=== PATIENT | female | born 1945 | race Caucasian/White ===

== ENCOUNTER 2018-10-11 10:47 | Emergency (ER) | payer MEDICARE, OTHER ==
[~2018-10-11] VITALS: Ht 157.5 cm; Wt 66.7 kg
[~2018-10-11 10:47] MED LIST: ALLOPURINOL100 MG PO; ASPIRIN81 MG PO; CALCITRIOL0.25 MCG PO; FUROSEMIDE40 MG PO; GABAPENTIN300 MG PO; HYDROCODON-ACE1 EAC9 PO; LISINOPRIL10 MG PO; PROPRANOLOL HCL20 MG PO; PROTONIX40 MG PO; RENVELA800 MG PO; ROZEREM8 MG PO; SERTRALINE HCL100 MG PO; SODIUM BICARBO650 MG PO; VITAMIN B-150 MG PO; VITAMIN B-6100 MG PO; WELLBUTRIN XL150 MG PO; XYZAL5 MG PO
--- OUTSIDE RECORDS SUMMARY | 2018-10-11 10:49 | XMS REPORT | Clinical Summary ---
Author Author Fredy [facility] Organization [facility] Address Unknown Phone Unavailable Care Team Providers Care Beam Sealer Name Role Phone Sheila Ross MD PCP Allergies Comments Active Allergy Reactions Severity Noted Date Adhesive Tape-Silicones Rash High 06/14/2016 Ciprofloxacin Itching High 10/02/2016 Erythromycin 06/14/2016 Other reaction(s): Other (See Comments) hallucinations Morphine GI 05/25/2016 Intolerance Other reaction(s): Hallucinations Morphine Sulfate 07/24/2016 Niacin 06/14/2016 Sulfa (Sulfonamide Rash High 06/14/2016 Antibiotics) Sulfisomidine Hives High 07/24/2016 Medications End Date Status Medication Sig Dispensed Refills Start Date Active gabapentin (NEURONTIN) Take 300 mg 0 600 mg tablet by mouth 2 (two) times a day. Active calcitriol (ROCALTROL) Take 0.25 mcg 0 0.25 MCG capsule by mouth daily. 3 tabs daily Active pantoprazole (PROTONIX) Take 40 mg by 0 40 MG EC tablet mouth every morning. Active sertraline (ZOLOFT) 100 Take 200 mg 0 MG tablet by mouth every evening. Active aspirin (ECOTRIN) 81 MG Take 81 mg by 0 enteric coated tablet mouth daily. Active propranolol (INDERAL) 20 Take 20 mg by 0 MG tablet mouth 3 (three) times a day. Active HYDROcodone-acetaminophen Take 1 tablet 0 (NORCO 10-325) 10-325 mg by mouth per tablet every 4 (four) hours as needed for moderate pain. Active sevelamer (RENVELA) 800 Take 2 0 mg tablet tablets by 5 mouth 3 times a day Active ergocalciferol Take 1 0 (ERGOCALCIFEROL) 50,000 capsule by 5 unit capsule mouth every 14 (fourteen) days. Active biotin 1 mg tablet Take 1,000 0 mcg by mouth daily. Active zinc sulfate (ZINCATE) Take 50 mg by 0 220 (50) mg capsule mouth. 1-3 tabs daily. Active cyanocobalamin (vitamin Take 500 mcg 0 B-12) 500 MCG tablet by mouth daily. Active THIAMINE HCL, VITAMIN B1, Take 1 tablet 0 ORAL by mouth daily. Active IPRATROPIUM BROMIDE NASL 2 sprays into 0 each nostril as needed. Active furosemide (LASIX) 40 mg Take 80 mg by 0 tablet mouth daily as needed. Takes every other day if no edema is present. Active zaleplon (SONATA) 10 MG Take 10 mg by 0 capsule mouth nightly. Active UNABLE TO FIND Med Name: 0 Allergy A&D dietary supplement s/p gastric bypass Active levocetirizine (XYZAL) 5 Take 1 tablet 90 tablet 3 03/13/201 MG tablet (5 mg total) 8 by mouth every evening. Active methocarbamol (ROBAXIN) Take 500 mg 0 500 MG tablet by mouth 2 (two) times a day. Active allopurinol (ZYLOPRIM) Take 100 mg 0 100 MG tablet by mouth daily. 12/05/2017 Discontinued buPROPion SR (WELLBUTRIN Take 150 mg 0 SR) 150 MG 12 hr tablet by mouth daily. Takes 3 tabs in am - confirm with patient total mg in am 12/05/2017 Discontinued ondansetron ODT Take 4 mg by 0 (ZOFRAN-ODT) 4 MG mouth every 8 disintegrating tablet (eight) hours as needed for nausea or vomiting. 11/08/2017 Discontinued fluticasone (FLONASE) 50 Use 1 spray 0 mcg/actuation nasal spray in each 6 nostril daily prn. 11/08/2017 Discontinued CHANTIX 0.5 mg tablet TK 1 T PO QD 3 7 12/05/2017 Discontinued DIETARY SUPPLEMENT,MISC Take by 0 COMB14 ORAL mouth. Allergy A&D Post Gastric Bypass medication 02/01/2018 Discontinued levocetirizine (XYZAL) 5 Take one-half 45 tablet 3 MG tablet tablet by 7 mouth every evening 11/08/2017 Discontinued VARENICLINE TARTRATE Take 4 mg by 0 (CHANTIX ORAL) mouth every morning. 08/08/2018 Discontinued ALLOPURINOL ORAL Take 600 mg 0 by mouth 7 every morning. 12/20/2017 ondansetron ODT (ZOFRAN Take 1 tablet 20 tablet 0 ODT) 4 MG disintegrating (4 mg total) 8 tablet by mouth every 8 (eight) hours as needed for nausea or vomiting for up to 20 days. 03/13/2018 Discontinued levocetirizine (XYZAL) 5 Take 1 tablet 90 tablet 3 MG tablet (5 mg total) 8 by mouth every evening. 08/08/2018 varicella-zoster Inject 0.5 mL 0.5 mL 0 [id number], PF, (SHINGRIX, into the 8 PF,) 50 mcg/0.5 mL shoulder, suspension for thigh, or reconstitution IM buttocks once injection for 1 dose. Active Problems Problem Noted Date Major depressive disorder, recurrent, moderate 08/08/2018 History of abnormal mammogram 08/08/2018 Complex regional pain syndrome type 1 of right upper extremity 08/08/2018 Benign essential tremor 08/08/2018 S/P shoulder replacement, left 12/25/2017 Retained orthopedic hardware 11/30/2017 Overview: Added automatically from request for surgery [id number] Complete tear of left rotator cuff 11/30/2017 Overview: Added automatically from request for surgery [id number] Glenohumeral arthritis, left 11/30/2017 Overview: Added automatically from request for surgery [id number] Hyperparathyroidism due to renal insufficiency 07/24/2016 History of gastric bypass 07/24/2016 Vitamin D deficiency 07/24/2016 B12 deficiency 07/24/2016 Peripheral polyneuropathy 07/24/2016 Tobacco dependence 07/24/2016 Chronic low back pain with sciatica 07/24/2016 Chronic kidney disease, stage IV (severe) 06/29/2016 Nephrolithiasis 06/13/2016 Obesity 06/13/2016 Overview: S/p Gastric Bypass 2004 L ast Assessment & Plan: Obesity is resolved / stable Abnormal gait 01/03/2012 Anemia due to chronic kidney disease 11/18/2010 Overview: Overview: ICD-10 Cleanup Gastroesophageal reflux disease 02/16/2009 Renal cell carcinoma 01/22/2006 Overview: Right Kidney - Nephrectomy at [facility] Essential hypertension 09/24/1998 Depression Oxalate nephropathy Encounters Care Team Description Date Type Specialty Babatunde Barrera MD Glenohumeral arthritis, left (Primary Dx) 08/23/2018 Office Visit Orthopedic Surgery Sheila Ross MD Medicare annual wellness visit, subsequent (Primary Dx); Essential hypertension; Major depressive disorder, recurrent, moderate (HCC); Hyperparathyroidism due to renal insufficiency (HCC); Renal cell carcinoma of right kidney (HCC); Chronic kidney disease, stage IV (severe) (HCC); History of gastric bypass; Complex regional pain syndrome type 1 of right upper extremity; Anemia due to stage 4 chronic kidney disease (HCC); Benign essential tremor; Tobacco dependence 08/08/2018 Office Visit Internal Medicine Babatunde Barrera MD S/P reverse total shoulder arthroplasty, left (Primary Dx) 05/17/2018 Office Visit Orthopedic Surgery Babatunde Barrera MD S/P shoulder replacement, left (Primary Dx) 04/09/2018 Office Visit Orthopedic Surgery Mary Mancini MA 03/13/2018 Refill Internal Medicine Babatunde Barrera MD S/P shoulder replacement, left (Primary Dx) 02/12/2018 Office Visit Orthopedic Surgery Josi Hicks S/P reverse total shoulder arthroplasty, left (Primary Dx); Left shoulder pain, unspecified chronicity 02/12/2018 Orders Only Orthopedic Surgery Sheila Ross MD 02/01/2018 Orders Only Internal Medicine Sheila Ross MD 02/01/2018 Refill Internal Medicine Gypsy Stewart MD 01/15/2018 Telephone Neurology Karo Pryor PA-C S/P reverse total shoulder arthroplasty, left (Primary Dx); Orthopedic aftercare 01/09/2018 Office Visit Orthopedic Surgery [place], [facility] 01/09/2018 Orders Only Ortho Sports Medicine [place], [facility] S/P shoulder surgery (Primary Dx) 01/08/2018 Orders Only Orthopedic Surgery Velia Leroy MD 12/28/2017 Telephone Mima Eller RN 12/26/2017 Orders Only Orthopedic Surgery Babatunde Barrera MD Left Shoudler OPEN Reverse TSA, Removal of Hemiarthroplasty and RCR hardware 12/25/2017 Surgery Orthopedic Surgery Lenka Sexton NP 12/25/2017 Anesthesia Orthopedic Surgery Event Babatunde Barrera MD Retained orthopedic hardware; Complete tear of left rotator cuff; Glenohumeral arthritis, left 12/25/2017 [facility] Orthopedic Surgery - Encounter 12/27/2017 Josi Hicks 12/18/2017 Orders Only Orthopedic Surgery Babatunde Barrera MD Preop examination (Primary Dx) 12/05/2017 Pre-Admit Pre-Admission Testing Testing Appointment Josi Hicks Glenohumeral arthritis, left (Primary Dx); Complete tear of left rotator cuff; Retained orthopedic hardware 11/30/2017 Orders Only Orthopedic Surgery Gypsy Stewart MD Essential tremor (Primary Dx); Depression, unspecified depression type 11/08/2017 Office Visit Neurology Babatunde Barrera MD Preoperative testing (Primary Dx); Preop examination 10/29/2017 Pre-Admit Pre-Admission Testing Testing Appointment Babatunde Barrera MD Primary localized osteoarthrosis of left shoulder region (Primary Dx) 10/19/2017 Office Visit Orthopedic Surgery after 10/10/2017 Immunizations Name Dates Previously Given Next Due FLUCELVAX QUAD PF (0.5mL 07/24/2016 syringe) H1N1 All Forms 08/24/2009 Hepatitis A 08/24/2009, 03/17/2009 Hepatitis B 08/24/2009, 04/16/2009, 03/17/2009 INFLUENZA QUAD PF 08/08/2018, 07/24/2017 Influenza Trivalent 07/08/2015, 06/15/2014, 07/16/2013, 06/24/2012, 08/07/2011, 08/01/2010, 06/23/2009 Influenza, Unspecified 05/26/2015 Pneumococcal Conjugate 03/09/2017 13-Valent Pneumococcal 11/22/2011, 09/24/2010 Polysaccharide Tetanus 11/05/2012, 12/31/2007 Family History Medical History Relation Name Comments Diabetes Father Flavio Scott Mae, Sr. Diabetes Mother Heart failure Mother Hypertension Mother Relation Name Status Comments Father Flavio Scott Mae, Sr. (Age 59) Mother (Age 89) Social History Date Tobacco Use Types Packs/Day Years Used Quit: 2016 Current Every Day Smoker Cigarettes 0.5 40 Smokeless Tobacco: Never Used Comments: had quit for 8 years Alcohol Use Drinks/Week oz/Week Comments No Sex Assigned at Date Recorded Not on file Industry Job Start Date Occupation Not on file Not on file Not on file Travel End Travel History Travel Start No recent travel history available. Last Filed Vital Signs Time Taken Vital Sign Reading 08/08/2018 1:02 PM CUFFING MACHINE OPERATOR Blood Pressure 152/74 08/08/2018 1:02 PM CUFFING MACHINE OPERATOR Pulse 69 08/08/2018 1:02 PM CUFFING MACHINE OPERATOR Temperature 36.8 C (98.2 F) 08/08/2018 1:02 PM CUFFING MACHINE OPERATOR Respiratory Rate 18 08/08/2018 1:02 PM CUFFING MACHINE OPERATOR Oxygen Saturation 98% - Inhaled Oxygen - Concentration 08/23/2018 9:16 AM CUFFING MACHINE OPERATOR Weight 68 kg (150 lb) 08/23/2018 9:16 AM CUFFING MACHINE OPERATOR Height 165.1 cm (5' 5") 08/23/2018 9:16 AM CUFFING MACHINE OPERATOR Body Mass Index 24.96 Plan of Treatment Care Team Description Date Type Specialty Babatunde Barrera MD [address] [phone] 02/21/2019 Office Visit Orthopedic Surgery Health Maintenance Due Date Last Done Comments DXA SCAN 1945 SHINGLES VACCINES ( of 1995 2) BREAST CANCER SCREENING 05/02/2019 05/02/2017, 02/04/2016, 11/09/2014, Additional history exists COLON CANCER SCREENING 09/24/2022 09/24/2012 PNEUMOCOCCAL Completed 11/22/2011, 09/24/2010 POLYSACCHARIDE VACCINE AGE 65 AND OVER PNEUMOCOCCAL-13 Completed 03/09/2017 INFLUENZA VACCINE Completed 08/08/2018, 08/08/2018, 07/24/2017, Additional history exists Implants Device Identifier Shelf Expiration Date Model / Serial / Lot Implanted Type Area Manufactur er 07/24/2022 AR [id number] / / [id number] Pin Set, Univers Revers - IPM N/A: N/A ARTHREX [id number] IMPLANT ORTHOPEDIC Implanted: Qty: 1 on 12/25/2017 by DEVICES S Babatunde Barrera MD 06/23/2021 AR 9120 02 / / [id number] Metalback Baseplate M - [id number] IPM Left: Shoulder ARTHREX Implanted: Qty: 1 on 12/25/2017 by IMPLANT ORTHOPEDIC Babatunde Barrera MD DEVICES S 07/24/2022 AR 9145 36 / / [id number] Screw 4,5 / - [id number] IPM Left: Shoulder ARTHREX Implanted: Qty: 1 on 12/25/2017 by IMPLANT Babatunde Ash MD DEVICES S 07/24/2022 AR 9165 15NL / / [id number] Central Screw 6,5 15 Non Lock - IPM Left: Shoulder ARTHREX [id number] IMPLANT ORTHOPEDIC Implanted: Qty: 1 on 12/25/2017 by DEVICES Babatunde Hansen MD 08/23/2022 AR 9145 30 / / [id number] Screw 4, - [id number] IPM Left: Shoulder ARTHREX Implanted: Qty: 1 on 12/25/2017 by IMPLANT Babatunde Ash MD DEVICES S 01/21/2022 AR 9504M / / [id number] Glenosphere M/39 - [id number] IPM Left: Shoulder ARTHREX Implanted: Qty: 1 on 12/25/2017 by IMPLANT Babatunde Ash MD DEVICES S 06/23/2022 AR 9502F 39LCPC / / [id number] Revers Suture Cup 39 (+2mm L/H), IPM Left: Shoulder ARTHREX Coated - [id number] IMPLANT ORTHOPEDIC Implanted: Qty: 1 on 12/25/2017 by DEVICES Babatunde Hansen MD 05/24/2022 AR 9503M 03 / / [id number] Humeral Liner M/39 +3 - [id number] IPM Left: Shoulder ARTHREX Implanted: Qty: 1 on 12/25/2017 by IMPLANT Babatunde Ash MD DEVICES S 01/21/2022 AR-9501-09P / / [id number] Arthrex Univers Revers Humeral Stem Shoulder Left: Shoulder ARTHREX Size 9 Implant INC Implanted: Qty: 1 on 12/25/2017 by System Babatunde Barrera MD Procedures Comments Procedure Name Priority Date/Time Associated Diagnosis XR SHOULDER 2+ VW LEFT Routine 02/12/2018 S/P reverse total 1:29 PM CDT shoulder arthroplasty, left Left shoulder pain, unspecified chronicity XR SHOULDER 2+ VW LEFT Routine 01/09/2018 S/P shoulder surgery 1:59 PM CDT ZZESTIMATED GFR Routine 12/27/2017 3:55 AM CDT BASIC METABOLIC PANEL Routine 12/27/2017 3:55 AM CDT HC COMPLETE BLD COUNT Routine 12/27/2017 W/AUTO DIFF 3:55 AM CDT XR SHOULDER 2+ VW LEFT Routine 12/26/2017 4:58 PM CDT CBC WITH PLATELET AND Routine 12/26/2017 DIFFERENTIAL 4:14 AM CDT ZZESTIMATED GFR Routine 12/26/2017 4:00 AM CDT COMPREHENSIVE METABOLIC Routine 12/26/2017 PANEL 4:00 AM CDT XR CHEST 1 VW PORTABLE Routine 12/25/2017 3:14 PM CDT SURGICAL PATHOLOGY Routine 12/25/2017 REQUEST 2:47 PM CDT GLUCOSE LEVEL, SYRINGE STAT 12/25/2017 1:50 PM CDT ARTERIAL BLOOD GAS STAT 12/25/2017 1:50 PM CDT IONIZED CALCIUM, ARTERIAL STAT 12/25/2017 1:50 PM CDT HEMOGLOBIN, SYRINGE STAT 12/25/2017 1:50 PM CDT AFB STAIN Timed 12/25/2017 1:33 PM CDT GRAM STAIN Timed 12/25/2017 1:33 PM CDT FUNGUS SMEAR Timed 12/25/2017 1:33 PM CDT AFB CULTURE Timed 12/25/2017 Retained orthopedic 1:33 PM CDT hardware Complete tear of left rotator cuff Glenohumeral arthritis, left AEROBIC CULTURE Timed 12/25/2017 Retained orthopedic 1:33 PM CDT hardware Complete tear of left rotator cuff Glenohumeral arthritis, left FUNGUS CULTURE Timed 12/25/2017 Retained orthopedic 1:33 PM CDT hardware Complete tear of left rotator cuff Glenohumeral arthritis, left ANAEROBIC CULTURE Timed 12/25/2017 Retained orthopedic 1:33 PM CDT hardware Complete tear of left rotator cuff Glenohumeral arthritis, left SHOULDER REPLACEMENT, 12/25/2017 Retained orthopedic TOTAL, REVERSE 1:30 PM CDT hardware Complete tear of left rotator cuff Glenohumeral arthritis, left Special Needs 2 hours, Modified Beach Chair, IS Block, Pain Pump, Shoudler Ultra Sling, Cryocuff, Arthrex Univers Reverse TSA AFB STAIN Timed 12/25/2017 1:22 PM CDT FUNGUS SMEAR Timed 12/25/2017 1:22 PM CDT GRAM STAIN Timed 12/25/2017 1:22 PM CDT AFB CULTURE Timed 12/25/2017 Retained orthopedic 1:22 PM CDT hardware Complete tear of left rotator cuff Glenohumeral arthritis, left AEROBIC CULTURE Timed 12/25/2017 Retained orthopedic 1:22 PM CDT hardware Complete tear of left rotator cuff Glenohumeral arthritis, left FUNGUS CULTURE Timed 12/25/2017 Retained orthopedic 1:22 PM CDT hardware Complete tear of left rotator cuff Glenohumeral arthritis, left ANAEROBIC CULTURE Timed 12/25/2017 Retained orthopedic 1:22 PM CDT hardware Complete tear of left rotator cuff Glenohumeral arthritis, left CENTRAL LINE Routine 12/25/2017 12:34 PM CDT Procedure Note - Vicenta Sin CRNA - 12/25/2017 12:34 PM CDT Central line Performed by: RYANN TOLEDO Authorized by: RYANN TOLEDO Patient Location: OR Start Time: 12/25/2017 12:14 PM End Time: 12/25/2017 12:22 PM Preprocedu re:patient identified , IV checked, site and side verified, risks and benefits discussed, procedure verified, surgical consent complete, patient position confirmed, monitors and equipment checked and pre-op evaluation complete MSBT: antiseptic used during central venous catheter insertion, all elements of maximal sterile barrier technique followed, hand hygiene performed prior to central venous catheter insertion, cap/gown used by other personnel during central venous catheter insertion and all ports not used during insertion clamped Indication s: Indication s: Central pressure monitoring and vascular access Anesthesia : Anesthesia : General Procedure details: Patient position: Trendelenb urg Catheter Type: Double lumen Catheter Size: 8 Fr Catheter Site: internal jugular vein Catheter site laterality : Right Pre-proced ure: Landmarks identified Ultrasound guidance used: Yes Ultrasound image saved: No Number of attempts: 1 Successful placement: Yes Guidewire removal: Guidewire removal is confirmed Guidewire removal witnessed by: VICENTA SIN Post-proce dure: Post-proce dure: line sutured, sterile dressing applied per protocol and ports flushed with saline Post-proce dure: Sterile caps on all hubs and blood cleaned with CHG Assessment : Blood return through all ports and free fluid flow Patient tolerance: Patient tolerated the procedure well with no immediate complicati ons ARTERIAL LINE Routine 12/25/2017 12:33 PM CDT Procedure Note - Vicenta Sin, WEB ANALYTICS SPECIALIST - 12/25/2017 12:33 PM CDT Arterial line Performed by: RYANN TOLEDO Authorized by: RYANN TOLEDO Patient Location: OR Start Time: 12/25/2017 12:04 PM End Time: 12/25/2017 12:06 PM Pre-proced ure: patient identified , IV checked, site and side verified, risks and benefits discussed, procedure verified, surgical consent complete, patient position confirmed, monitors and equipment checked and pre-op evaluation complete MSBT: antiseptic used and hand hygiene performed TIme Out Performed: 12/25/2017 11:53 AM Indication s: Indication s: multiple ABGs and hemodynami c monitoring Anesthesia : Anesthesia : General Procedure Details: Arterial Line placement: Placed post induction Line placement site: Radial Line placement side: Right Arterial line gauge: 20 G Number of attempts: 1 Ultrasound guidance used: Yes Post-proc edure: Post-proce dure: Sterile dressing applied Post procedure circulatio n, sensation, movement: Unchanged Patient tolerance: Patient tolerated the procedure well with no immediate complicati ons ME AN ELECTIVE Routine 12/25/2017 ENDOTRACHEAL AIRWAY 12:32 PM CDT Procedure Note - Vicenta Sin CRNA - 12/25/2017 12:32 PM CDT Airway Date/Time: 12/25/2017 12:00 PM Performed by: VICENTA SIN Authorized by: RYANN TOLEDO Location: OR Urgency: Elective Difficult Airway: No Preoxygena jose with 100% O2: Yes C-spine Precaution s Maintained Throughout : No Mask Ventilatio n: Easy mask Final Airway Type: Endotrache al airway Final Endotrache al Airway: ETT Technique Used: Direct laryngosco py Devices/Me thods Used in Placement: Intubatin g stylet Insertion Site: Oral Blade Type: [place] Laryngosco pe Blade/Vide olaryngosc ope Blade Size: 2 ETT Size (mm): 7.0 Measured from: Teeth ETT to Teeth (cm): 21 Placement Verified by: CO2 detection, direct visualizat ion and equal breath sounds Laryngosco pic view: Grade I - full view of glottis Rapid Sequence Induction (RSI): No Number of Attempts at Approach: 1 Atraumati c x 1 attempt ME AN PERIPHERAL BLOCK Routine 12/25/2017 POST-OP PAIN 11:29 AM CDT Procedure Note - Ryann Toledo MD - 12/25/2017 11:29 AM CDT Peripheral Block Performed by: RYANN TOLEDO Authorized by: RYANN TOLEDO Patient Location: Pre-op Start Time: 12/25/2017 11:18 AM End Time: 12/25/2017 11:25 AM Reason for Block: at surgeon's request, post-op pain management Staff: Anesthesio logist: RYANN TOLEDO Performed by: Anesthesio logisclay Preprocedu re: patient identified , IV checked, site and side verified, risks and benefits discussed, procedure verified, surgical consent complete, patient position confirmed, monitors and equipment checked, pre-op evaluation complete and site marked Time Out Performed: 12/25/2017 11:13 AM Peripheral Nerve Block: Patient Position: Right lateral decubitus Prep: ChloraPrep Monitoring : Blood pressure monitoring , continuous pulse oximetry and heart rate Block Type: Brachial plexus and interscale ne Laterality : Left Injection Technique: Catheter insertion Procedures : ultrasound guided and nerve stimulator Ultrasound documentat ion: Images saved on hard disk and printed/pl aced in chart Local Infiltrati on (See MAR for details): Lidocaine Loss of Twitch: 0.3 mA Needle: Needle Type: Pajunk Needle Gauge: 19 G Needle Length: 10 cm Catheter at Skin Depth: 6 cm Assessment : Injection Assessment : Visualized needle/loc al anesthetic surroundin g nerve, intermitte nt aspiration during local anesthetic administra tion, visualized pertinent vascular structures and nerves, no symptoms of intraneura l/intraven ous injection and needle tip visualized at all times during injection of medication Paresthesi a Pain: None Heart Rate Change: No Slow Fractionat ed Injection: Yes Block outcome: No apparent complicati ons, patient comfortabl e and patient tolerated procedure well POC PANEL 4 Routine 12/25/2017 10:10 AM CDT URINE CULTURE Routine 12/05/2017 4:00 PM CDT ZZESTIMATED GFR Routine 12/05/2017 3:48 PM CDT URINALYSIS SCREEN AND Routine 12/05/2017 Preop examination MICROSCOPY, WITH REFLEX 3:48 PM CDT TO CULTURE TYPE AND SCREEN Routine 12/05/2017 Preop examination 3:48 PM CDT HEMOGLOBIN A1C Routine 12/05/2017 Preop examination 3:48 PM CDT PARTIAL THROMBOPLASTIN Routine 12/05/2017 Preop examination TIME (PTT) 3:48 PM CDT PROTHROMBIN TIME WITH INR Routine 12/05/2017 Preop examination 3:48 PM CDT COMPREHENSIVE METABOLIC Routine 12/05/2017 Preop examination PANEL 3:48 PM CDT HC COMPLETE BLD COUNT Routine 12/05/2017 Preop examination W/AUTO DIFF 3:48 PM CDT URINE CULTURE Routine 10/29/2017 1:25 PM CUFFING MACHINE OPERATOR TYPE AND SCREEN Routine 10/29/2017 Preoperative testing 1:05 PM CUFFING MACHINE OPERATOR ECG 12-LEAD Routine 10/29/2017 Preoperative testing 1:02 PM CUFFING MACHINE OPERATOR URINALYSIS SCREEN AND Routine 10/29/2017 Preoperative testing MICROSCOPY, WITH REFLEX 12:55 PM CUFFING MACHINE OPERATOR Preop examination TO CULTURE ZZESTIMATED GFR Routine 10/29/2017 12:39 PM CUFFING MACHINE OPERATOR COMPREHENSIVE METABOLIC Routine 10/29/2017 Preoperative testing PANEL 12:39 PM CUFFING MACHINE OPERATOR CBC HEMOGRAM Routine 10/29/2017 Preoperative testing 12:39 PM CUFFING MACHINE OPERATOR after 10/10/2017 Results * XR Shoulder 2+ Vw Left (02/12/2018 1:29 PM CDT) Only the most recent of 3 results within the time period is included. Narrative Performed At [facility] Three views (true AP, axillary, scapular Y views) of the left shoulder are obtained and reviewed today.There is no evidence of dislocation , fracture or other complication. The prosthesis appears to be in good position. Performing Organization Address [facility] [place] Phone Number [facility] [address] [place] [address] * Estimated GFR (12/27/2017 3:55 AM CDT) Only the most recent of 4 results within the time period is included. GFR Non Af Amer 17 (A) mL/min/1.73 m2 [facility] GFR Af Amer 20 (A) mL/min/1.73 m2 [facility] Comment: PATHOLOGY AND Chronic kidney disease: <60 GENOMIC MEDICINE mL/min/1.73m2 Kidney failure: <15 mL/min/1.73m2 The estimated GFR is calculated from the IDMS-traceable Modification of Diet in Renal Disease Equation. The accuracy of the calculation is poor when the creatinine is normal. Calculated values >90 mL/min/1.73m2 are not reported. This equation has not been validated in children (<18 years), women, the elderly (>70 years), or ethnic groups other than Caucasians and Americans. Specimen Plasma specimen Performing Organization Address City/State/Zipcode Phone Number [facility] [address] [place] [phone] PATHOLOGY AND GENOMIC MEDICINE * CBC with platelet and differential (12/27/2017 3:55 AM CDT) Only the most recent of 3 results within the time period is included. WBC 4.24 (L) 4.50 - 11.00 k/uL [facility] RBC 2.49 (L) 4.20 - 5.50 m/uL [facility] HGB 7.7 (L) 12.0 - 16.0 g/dL [facility] HCT 24.9 (L) 37.0 - 47.0 % [facility] MCV 100.0 82.0 - 100.0 fL [facility] MCH 30.9 27.0 - 34.0 pg [facility] DEPARTMENT OF PATHOLOGY AND GENOMIC MEDICINE MCHC 30.9 (L) 31.0 - 37.0 g/dL [facility] DEPARTMENT OF PATHOLOGY AND GENOMIC MEDICINE RDW - SD 46.4 37.0 - 55.0 fL [facility] DEPARTMENT OF PATHOLOGY AND GENOMIC MEDICINE MPV 10.1 8.8 - 13.2 fL [facility] DEPARTMENT OF PATHOLOGY AND GENOMIC MEDICINE Platelet count 126 (L) 150 - 400 k/uL [facility] DEPARTMENT OF PATHOLOGY AND GENOMIC MEDICINE Nucleated RBC 0.00 /100 WBC [facility] DEPARTMENT OF PATHOLOGY AND GENOMIC MEDICINE Neutrophils 70.1 (H) 39.0 - 69.0 % [facility] DEPARTMENT OF PATHOLOGY AND GENOMIC MEDICINE Lymphocytes 14.4 (L) 25.0 - 45.0 % [facility] DEPARTMENT OF PATHOLOGY AND GENOMIC MEDICINE Monocytes 13.4 (H) 0.0 - 10.0 % [facility] DEPARTMENT OF PATHOLOGY AND GENOMIC MEDICINE Eosinophils 1.4 0.0 - 5.0 % [facility] DEPARTMENT OF PATHOLOGY AND GENOMIC MEDICINE Basophils 0.2 0.0 - 1.0 % [facility] DEPARTMENT OF PATHOLOGY AND GENOMIC MEDICINE Immature granulocytes 0.5Comment: "Immature 0.0 - 1.0 % [facility] DEPARTMENT OF granulocytes" (promyelocytes, PATHOLOGY AND myelocytes, metamyelocytes) [facility] MEDICINE Specimen Blood Performing Organization Address City/State/Zipcode Phone Number [place] [phone] [place] [address] PATHOLOGY AND GENOMIC MEDICINE * Basic metabolic panel (12/27/2017 3:55 AM CDT) Sodium 140 135 - 148 mEq/L [facility] DEPARTMENT OF PATHOLOGY AND GENOMIC MEDICINE Potassium 4.2 3.5 - 5.0 mEq/L [facility] DEPARTMENT OF PATHOLOGY AND GENOMIC MEDICINE Chloride 106 98 - 112 mEq/L [facility] DEPARTMENT OF PATHOLOGY AND GENOMIC MEDICINE CO2 19 (L) 24 - 31 mEq/L [facility] DEPARTMENT OF PATHOLOGY AND GENOMIC MEDICINE Anion gap 15 7 - 15 mEq/L [facility] DEPARTMENT OF Comment: PATHOLOGY AND Starting from December [facility] , anion gap calculation no longer incorporates potassium. Please note the change. BUN 56 (H) 8 - 23 mg/dL [facility] DEPARTMENT OF PATHOLOGY AND GENOMIC MEDICINE Creatinine 2.8 (H) 0.5 - 0.9 mg/dL [facility] DEPARTMENT OF PATHOLOGY AND GENOMIC MEDICINE Glucose 102 (H) 65 - 99 mg/dL [facility] DEPARTMENT OF PATHOLOGY AND GENOMIC MEDICINE Calcium 8.3 (L) 8.8 - 10.2 mg/dL [facility] DEPARTMENT OF PATHOLOGY AND GENOMIC MEDICINE Specimen Plasma specimen Performing Organization Address City/State/Zipcode Phone Number [facility] DEPARTMENT OF [address] [place] [address] PATHOLOGY AND GENOMIC MEDICINE * Comprehensive metabolic panel (12/26/2017 4:00 AM CDT) Only the most recent of 3 results within the time period is included. Sodium 134 (L) 135 - 148 mEq/L [facility] DEPARTMENT OF PATHOLOGY AND GENOMIC MEDICINE Potassium 5.9 (H) 3.5 - 5.0 mEq/L [facility] DEPARTMENT OF PATHOLOGY AND GENOMIC MEDICINE Chloride 104 98 - 112 mEq/L [facility] DEPARTMENT OF PATHOLOGY AND GENOMIC MEDICINE CO2 17 (L) 24 - 31 mEq/L [facility] DEPARTMENT OF PATHOLOGY AND GENOMIC MEDICINE Anion gap 13 7 - 15 mEq/L [facility] DEPARTMENT OF Comment: PATHOLOGY AND Starting from December [facility] , anion gap calculation no longer incorporates potassium. Please note the change. BUN 65 (H) 8 - 23 mg/dL [facility] DEPARTMENT OF PATHOLOGY AND GENOMIC MEDICINE Creatinine 2.8 (H) 0.5 - 0.9 mg/dL [facility] DEPARTMENT OF PATHOLOGY AND GENOMIC MEDICINE Glucose 106 (H) 65 - 99 mg/dL [facility] DEPARTMENT OF PATHOLOGY AND GENOMIC MEDICINE Calcium 8.1 (L) 8.8 - 10.2 mg/dL [facility] DEPARTMENT OF PATHOLOGY AND GENOMIC MEDICINE Protein 5.1 (L) 6.3 - 8.3 g/dL [facility] DEPARTMENT OF Comment: PATHOLOGY AND GENOMIC MEDICINE 4.6-7.0 g/dL 1 week 4.4-7.6 g/dL 7 months-1year 5.1-7.3 g/dL 1-2 years5.6-7 .5 g/dL >3 years6.0-8 .0 g/dL 18-150 6.3-8.3 g/dL Albumin 2.7 (L) 3.5 - 5.0 g/dL [facility] DEPARTMENT OF PATHOLOGY AND GENOMIC MEDICINE A/G ratio 1.1 0.7 - 3.8 [facility] DEPARTMENT OF PATHOLOGY AND GENOMIC MEDICINE Alkaline phosphatase 132 (H) 35 - 104 U/L [facility] DEPARTMENT OF PATHOLOGY AND GENOMIC MEDICINE AST 52 (H) 10 - 35 U/L [facility] DEPARTMENT OF PATHOLOGY AND GENOMIC MEDICINE ALT 29 5 - 50 U/L [facility] DEPARTMENT OF PATHOLOGY AND GENOMIC MEDICINE Total bilirubin <0.2 0.0 - 1.2 mg/dL [facility] DEPARTMENT OF PATHOLOGY AND GENOMIC MEDICINE Specimen Plasma specimen Performing Organization Address City/State/Zipcode Phone Number [facility] DEPARTMENT OF [address] [place] [phone] PATHOLOGY AND GENOMIC MEDICINE * XR Chest 1 Vw Portable (12/25/2017 3:14 PM CDT) Narrative Performed At Examination:XR CHEST 1 VW PORTABLE RADIANT Clinical history:"UVC Line Placement, Central line placement" Comparison:Chest x-rays dated June 14, 2016. IMPRESSION: 1. Status post placement of right internal jugular central line with catheter tip located at atriocaval junction. 2. Passive atelectasis at the lung bases. 3. Right lower lobe opacity either represents atelectasis or consolidation/pneumonia. 4. Low lung volume. 5. Left shoulder arthroplasty. 6. Negative for pneumothorax or pleural effusion. [id number] Procedure Note Interface, Radiology Results Incoming - 12/25/2017 3:49 PM CDT Examination: XR CHEST 1 VW PORTABLE Clinical history: "UVC Line Placement, Central line placement" Comparison: Chest x-rays dated June 14, 2016. IMPRESSION: 1. Status post placement of right internal jugular central line with catheter tip located at atriocaval junction. 2. Passive atelectasis at the lung bases. 3. Right lower lobe opacity either represents atelectasis or consolidation/pneumonia. 4. Low lung volume. 5. Left shoulder arthroplasty. 6. Negative for pneumothorax or pleural effusion. [id number] Performing Organization Address City/[facility]/[place] [address] * Surgical pathology request (12/25/2017 2:47 PM CDT) [facility] DEPARTMENT OF PATHOLOGY AND GENOMIC MEDICINE Surgical pathology report See link below for PDF Lab [facility] DEPARTMENT OF Report PATHOLOGY AND GENOMIC MEDICINE Result status This is Final Report to [facility] DEPARTMENT OF [id number] PATHOLOGY AND GENOMIC MEDICINE Performing Organization Address [facility] [place] [address] PATHOLOGY AND GENOMIC MEDICINE * Ionized calcium, arterial (12/25/2017 1:50 PM CDT) Ionized calcium, arterial 1.06 (L) 1.11 - 1.32 mmol/L [facility] DEPARTMENT OF PATHOLOGY AND GENOMIC MEDICINE Specimen Blood Performing Organization Address [facility] [place] [address] PATHOLOGY AND GENOMIC MEDICINE * Hemoglobin, syringe (12/25/2017 1:50 PM CDT) Hemoglobin, syringe 10.8 (L) 12.0 - 16.0 g/dL [facility] DEPARTMENT OF PATHOLOGY AND GENOMIC MEDICINE Specimen Blood Performing Organization Address City/[facility] [place] [address] PATHOLOGY AND GENOMIC MEDICINE * Glucose level, syringe (12/25/2017 1:50 PM CDT) Glucose, syringe 121 (H) 65 - 99 mg/dL [facility] DEPARTMENT OF PATHOLOGY AND GENOMIC MEDICINE Specimen Blood Performing Organization Address City/[facility]/[place] [address] PATHOLOGY AND GENOMIC MEDICINE * Arterial blood gas (12/25/2017 1:50 PM CDT) pH, arterial 7.31 (L) 7.35 - 7.45 [facility] DEPARTMENT OF PATHOLOGY AND GENOMIC MEDICINE pCO2, arterial 40 35 - 45 mmHg [facility] DEPARTMENT OF PATHOLOGY AND GENOMIC MEDICINE pO2, arterial 241 (H) 80 - 90 mmHg [facility] DEPARTMENT OF PATHOLOGY AND GENOMIC MEDICINE Bicarbonate, arterial 19.3 (L) 21.0 - 28.0 mmol/L [facility] DEPARTMENT OF PATHOLOGY AND GENOMIC MEDICINE Base excess, arterial -6 (L) -2 - 2 mEq/L [facility] DEPARTMENT OF PATHOLOGY AND GENOMIC MEDICINE O2 saturation, arterial 99 95 - 100 % [facility] DEPARTMENT OF PATHOLOGY AND GENOMIC MEDICINE Specimen Blood Performing Organization Address City/[facility] [place] Phone Number [place] [address] PATHOLOGY AND GENOMIC MEDICINE * Fungus smear (12/25/2017 1:33 PM CDT) Only the most recent of 2 results within the time period is included. Fungus smear No fungi observed. [facility] DEPARTMENT OF Comment: PATHOLOGY AND Specimen Information GENOMIC MEDICINE Specimen Source: Wound Specimen Site: Shoulder, left Specimen Wound - Shoulder, left Performing Organization Address [facility] Phone Number [place] [address] PATHOLOGY AND GENOMIC MEDICINE * AFB culture (12/25/2017 1:33 PM CDT) Only the most recent of 2 results within the time period is included. AFB culture isolate No growth after 6 weeks of [facility] DEPARTMENT OF incubation. PATHOLOGY AND Comment: GENOMIC MEDICINE Specimen Information Specimen Source: Wound Specimen Site: Shoulder, left Specimen Wound - Shoulder, left Performing Organization Address City/[facility] [place] Phone Number [place] [address] PATHOLOGY AND GENOMIC MEDICINE * Aerobic culture (12/25/2017 1:33 PM CDT) Only the most recent of 2 results within the time period is included. Aerobic culture isolate No growth after 3 days. [facility] DEPARTMENT OF Comment: PATHOLOGY AND Specimen Information GENOMIC MEDICINE Specimen Source: Wound Specimen Site: Shoulder, left Specimen Wound - Shoulder, left Performing Organization Address City/[facility] [place] Phone Number [place] [address] PATHOLOGY AND GENOMIC MEDICINE * Gram stain (12/25/2017 1:33 PM CDT) Only the most recent of 2 results within the time period is included. Gram stain isolate Few WBC's [facility] DEPARTMENT OF No organisms seen PATHOLOGY AND Comment: GENOMIC MEDICINE Specimen Information Specimen Source: Wound Specimen Site: Shoulder, left Specimen Wound - Shoulder, left Performing Organization Address [facility] [place] Phone Number [place] [address] PATHOLOGY AND GENOMIC MEDICINE * AFB stain (12/25/2017 1:33 PM CDT) Only the most recent of 2 results within the time period is included. AFB stain No acid fast bacilli (AFB) [facility] DEPARTMENT OF seen. PATHOLOGY AND Comment: GENOMIC MEDICINE Specimen Information Specimen Source: Wound Specimen Site: Shoulder, left Specimen Wound - Shoulder, left Performing Organization Address [facility] [place] Phone Number [place] [address] PATHOLOGY AND GENOMIC MEDICINE * Fungus culture (12/25/2017 1:33 PM CDT) Only the most recent of 2 results within the time period is included. Fungus culture isolate No growth after 4 weeks of [facility] DEPARTMENT OF incubation. PATHOLOGY AND Comment: GENOMIC MEDICINE Specimen Information Specimen Source: Wound Specimen Site: Shoulder, left Specimen Wound - Shoulder, left Performing Organization Address [facility] Phone Number [place] [address] PATHOLOGY AND GENOMIC MEDICINE * Anaerobic culture (12/25/2017 1:33 PM CDT) Only the most recent of 2 results within the time period is included. Anaerobic culture isolate No anaerobic organisms [facility] DEPARTMENT OF isolated. PATHOLOGY AND Comment: GENOMIC MEDICINE Specimen Information Specimen Source: Wound Specimen Site: Shoulder, left Specimen Wound - Shoulder, left Performing Organization Address [facility] [place] Phone Number [place] [address] PATHOLOGY AND GENOMIC MEDICINE * POC panel 4 (12/25/2017 10:10 AM CDT) POC sodium 138 135 - 148 mmol/L [facility] DEPARTMENT OF PATHOLOGY AND GENOMIC MEDICINE POC potassium 5.4 (H) 3.5 - 5.0 mmol/L [facility] DEPARTMENT OF PATHOLOGY AND GENOMIC MEDICINE POC hematocrit 36 (L) 37 - 47 % [facility] DEPARTMENT OF Comment: PATHOLOGY AND Meter ID: [id number] GENOMIC MEDICINE Inspector Electromechanical: Adore Benz POC glucose 79 65 - 99 mg/dL [facility] DEPARTMENT OF PATHOLOGY AND GENOMIC MEDICINE Performing Organization Address City/State/Zipcode Phone Number [facility] DEPARTMENT OF [address] [place] [phone] PATHOLOGY AND GENOMIC MEDICINE * Urine culture (12/05/2017 4:00 PM CDT) Only the most recent of 2 results within the time period is included. Urine culture SEE COMMENTComment: [facility] DEPARTMENT OF Bacteriuria screen negative. PATHOLOGY AND GENOMIC MEDICINE Performing Organization Address City/[facility]/Zipcode Phone Number [facility] DEPARTMENT OF [address] [place] [phone] PATHOLOGY AND GENOMIC MEDICINE * Urinalysis screen and microscopy, with reflex to culture (12/05/2017 3:48 PM CDT) Only the most recent of 2 results within the time period is included. Specimen site Clean catch [facility] DEPARTMENT OF PATHOLOGY AND GENOMIC MEDICINE Color, UA Straw [facility] DEPARTMENT OF PATHOLOGY AND GENOMIC MEDICINE Appearance, UA Clear [facility] DEPARTMENT OF PATHOLOGY AND GENOMIC MEDICINE Specific gravity, UA 1.008 1.001 - 1.035 [facility] DEPARTMENT OF PATHOLOGY AND GENOMIC MEDICINE pH, UA 6.0 5.0 - 8.5 [facility] DEPARTMENT OF PATHOLOGY AND GENOMIC MEDICINE Protein, UA Negative Negative [facility] DEPARTMENT OF PATHOLOGY AND GENOMIC MEDICINE Glucose, UA Negative Negative [facility] DEPARTMENT OF PATHOLOGY AND GENOMIC MEDICINE Ketones, UA Negative Negative [facility] DEPARTMENT OF PATHOLOGY AND GENOMIC MEDICINE Bilirubin, UA Negative Negative [facility] DEPARTMENT OF PATHOLOGY AND GENOMIC MEDICINE Blood, UA Negative Negative [facility] DEPARTMENT OF PATHOLOGY AND GENOMIC MEDICINE Nitrite, UA Negative Negative [facility] DEPARTMENT OF PATHOLOGY AND GENOMIC MEDICINE Urobilinogen, UA <2.0 <2.0 [facility] DEPARTMENT OF PATHOLOGY AND GENOMIC MEDICINE Leukocyte esterase, UA Negative Negative [facility] DEPARTMENT OF PATHOLOGY AND GENOMIC MEDICINE Epithelial cells, UA <1 /HPF [facility] DEPARTMENT OF PATHOLOGY AND GENOMIC MEDICINE WBC, UA None seen 0 - 4 /HPF [facility] DEPARTMENT OF PATHOLOGY AND GENOMIC MEDICINE RBC, UA <1 0 - 2 /HPF [facility] DEPARTMENT OF PATHOLOGY AND GENOMIC MEDICINE Bacteria, UA None seen None seen [facility] DEPARTMENT OF PATHOLOGY AND GENOMIC MEDICINE Yeast, UA None seen [facility] DEPARTMENT OF PATHOLOGY AND GENOMIC MEDICINE Yeast with pseudohyphae, None seen [facility] DE[facility] OF UA PATHOLOGY AND GENOMIC MEDICINE Specimen Urine Performing Organization Address [facility] [place] Phone Number [facility] [address] [address] PATHOLOGY AND GENOMIC MEDICINE * Partial thromboplastin time, activated (12/05/2017 3:48 PM CDT) PTT 29.4 23.0 - 36.0 sec [facility] DEPARTMENT OF Comment: PATHOLOGY AND PTT therapeutic range for GENOMIC MEDICINE unfractionated heparin is 61.0-112.0 seconds which corresponds to Anti-Xa 0.3-0.7 U/ml. Specimen Blood Performing Organization Address [facility]/Zipcode Phone Number [address] [address] PATHOLOGY AND GENOMIC MEDICINE * Prothrombin time with INR (12/05/2017 3:48 PM CDT) Prothrombin time 15.1 (H) 12.0 - 15.0 sec [facility] DEPARTMENT OF PATHOLOGY AND GENOMIC MEDICINE INR 1.2 [facility] DEPARTMENT OF Comment: PATHOLOGY AND The International Normalized [facility] MEDICINE Ratio (INR) is a therapeutic monitoring tool for patients who are stable on oral anticoagulant therapy. An INR of 2.0-3.0 is suggested for deep vein thrombosis/pulmonary embolism. Specimen Blood Performing Organization Address [facility] [place] [address] PATHOLOGY AND GENOMIC MEDICINE * Type and screen (12/05/2017 3:48 PM CDT) Only the most recent of 2 results within the time period is included. ABO grouping A [facility] DEPARTMENT OF PATHOLOGY AND GENOMIC MEDICINE Rh type POS [facility] DEPARTMENT OF PATHOLOGY AND GENOMIC MEDICINE Antibody screen (gel) NEG [facility] DEPARTMENT OF PATHOLOGY AND GENOMIC MEDICINE Specimen Blood Performing Organization Address City/[facility]/Zipcode Phone Number [facility] [address] [address] PATHOLOGY AND GENOMIC MEDICINE * Hemoglobin A1c (12/05/2017 3:48 PM CDT) Hemoglobin A1C 5.0 4.0 - 5.6 % [facility] DEPARTMENT OF Comment: PATHOLOGY AND HbA1c cutoffs for diagnosing GENOMIC MEDICINE diabetes: 4.0% - 5.6%=normal 5.7% - 6.4%=increased risk for diabetes (prediabetes) >=6.5%=diabetes Goals for glycemic control (ADA 2016) < 7.0%Target for non adults with diabetes. More or less stringent targets may be appropriate for individual patients. <7.5% Target for Children and adolescents with type 1 diabetes. Specimen Blood Performing Organization Address [facility] [place] Phone Number [address] [address] PATHOLOGY AND GENOMIC MEDICINE * ECG 12 lead (10/29/2017 1:02 PM CUFFING MACHINE OPERATOR) Ventricular rate 55 [facility] MUSE Atrial rate 55 [facility] ME interval 214 [facility] QRSD interval 84 [facility] QT interval 402 [facility] QTC interval 384 [facility] P axis 1 82 [facility] QRS axis 1 31 [facility] T wave axis 59 [facility] EKG impression Sinus bradycardia with 1st [facility] M[facility] degree AV block-Otherwise normal ECG-In automated comparison with ECG of 14-JUN-2016 08:07,-No significant change was found- Performing Organization Address [facility] [place] Phone Number [facility] [address] [place] [address] * CBC hemogram (10/29/2017 12:39 PM CUFFING MACHINE OPERATOR) WBC 5.00 4.50 - 11.00 k/uL [facility] DEPARTMENT OF PATHOLOGY AND GENOMIC MEDICINE RBC 3.78 (L) 4.20 - 5.50 m/uL [facility] DEPARTMENT OF PATHOLOGY AND GENOMIC MEDICINE HGB 11.6 (L) 12.0 - 16.0 g/dL [facility] DEPARTMENT OF PATHOLOGY AND GENOMIC MEDICINE HCT 36.5 (L) 37.0 - 47.0 % [facility] DEPARTMENT OF PATHOLOGY AND GENOMIC MEDICINE MCV 96.6 82.0 - 100.0 fL [facility] DEPARTMENT OF PATHOLOGY AND GENOMIC MEDICINE MCH 30.7 27.0 - 34.0 pg [facility] DEPARTMENT OF PATHOLOGY AND GENOMIC MEDICINE MCHC 31.8 31.0 - 37.0 g/dL [facility] DEPARTMENT OF PATHOLOGY AND GENOMIC MEDICINE RDW - SD 48.2 37.0 - 55.0 fL [facility] DEPARTMENT OF PATHOLOGY AND GENOMIC MEDICINE MPV 9.8 8.8 - 13.2 fL [facility] DEPARTMENT OF PATHOLOGY AND GENOMIC MEDICINE Platelet count 217 150 - 400 k/uL [facility] DEPARTMENT OF PATHOLOGY AND GENOMIC MEDICINE Nucleated RBC 0.00 /100 WBC [facility] DEPARTMENT OF PATHOLOGY AND GENOMIC MEDICINE Specimen Blood Performing Organization Address City/State/Zipcode Phone Number [facility] [address] [place] [address] PATHOLOGY AND GENOMIC MEDICINE after 10/10/2017 Insurance Payer Benefit Subscriber ID Type Phone Address Plan / Group [facility] xxxxxxxxx HMO/PPO THCARE CHOICE/CHO ICE + MEDICARE MEDICARE xxxxxxxxxxx Medicare [place] PART A AND B [employer] TR[employer]PLANT MNGD [employer] TXP xxxxxxxxx Transplant CARE NGUYỄN 2010+ Advance Directives Patient has advance care planning documents on file. For more information, lowell welch contact: Fredy Darby [address] [place] [address]
--- OUTSIDE RECORDS SUMMARY | 2018-10-11 10:50 | XMS REPORT | Clinical Summary ---
Author Author HAI[facility] Organization [facility] Address Unknown Phone Unavailable Care Team Providers Care Superintendent Compressor Stations Name Role Phone Sheila Ross PCP Allergies Comments Active Allergy Reactions Severity Noted Date Adhesive Rash Low 05/25/2016 Ciprofloxacin Itching 10/16/2016 Erythromycin Rash Low 05/25/2016 hallucinations Morphine Other (See 05/25/2016 Comments) Niacin Preparations Hives Low 05/25/2016 Sulfa (Sulfonamide Hives, Rash Low 05/25/2016 Antibiotics) Medications End Date Status Medication Sig Dispensed Refills Start Date Active aspirin 81 MG EC tablet Take 81 mg by 0 mouth daily. Active biotin 1 mg Cap Take by mouth 0 daily. Active buPROPion (WELLBUTRIN SR) Take 100 mg 0 100 MG 12 hr tablet by mouth daily. Active calcitriol (ROCALTROL) Take 0.25 mcg 0 0.25 MCG capsule by mouth 3 (three) times daily. Active cyanocobalamin (VITAMIN Take 500 mcg 0 B-12) 500 MCG tablet by mouth daily. Active cholecalciferol, vitamin Take 50,000 0 D3, 50,000 unit Tab Units by mouth every 14 (fourteen) days . Active fluticasone (FLONASE) 50 1 spray by 0 mcg/actuation nasal spray Nasal route daily. Active gabapentin (NEURONTIN) Take 300 mg 0 300 MG capsule by mouth 2 (two) times daily . Active HYDROcodone-acetaminophen Take 1 tablet 0 (NORCO 5-325) 5-325 mg by mouth per tablet every 6 (six) hours as needed for Pain. Active levocetirizine (XYZAL) 5 Take 5 mg by 0 MG tablet mouth every evening. Active ondansetron (ZOFRAN-ODT) Take 4 mg by 0 4 MG disintegrating mouth every 8 tablet (eight) hours as needed for Nausea. Active pantoprazole (PROTONIX) Take 40 mg by 0 40 MG tablet mouth daily. Active propranolol (INDERAL) 20 Take 20 mg by 0 MG tablet mouth 3 (three) times daily. Active sevelamer (RENVELA) 800 Take 800 mg 0 mg tablet by mouth 3 (three) times daily with meals. Active ZINC ORAL Take by mouth 0 daily. Active ipratropium (ATROVENT) 2 sprays by 0 0.06 % nasal spray Nasal route 3 (three) times daily before meals. Active sertraline (ZOLOFT) 100 Take 100 mg 0 MG tablet by mouth daily. Active zolpidem (AMBIEN) 10 mg Take 10 mg by 0 tablet mouth every night as needed for Insomnia. Active Problems No known active problems Social History Date Tobacco Use Types Packs/Day Years Used Current Every Day Smoker 0.25 40 Smokeless Tobacco: Never Used Tobacco Cessation: Ready to Quit: Yes; Counseling Given: Yes Alcohol Use Drinks/Week oz/Week Comments Yes seldom Sex Assigned at Date Recorded Not on file Industry Job Start Date Occupation Not on file Not on file Not on file Travel End Travel History Travel Start No recent travel history available. Last Filed Vital Signs Not on file Plan of Treatment Not on file Results Not on fileafter 10/10/2017 Insurance Payer Benefit Subscriber ID Type Phone Address Plan / Group MEDICARE MEDICARE A xxxxxxxxxx Medicare B [facility] xxxxxxxxx HMO/POS CARE POS SELECT CHOICE
--- OUTSIDE RECORDS SUMMARY | 2018-10-11 10:50 | XMS REPORT ---
Author Author [facility] [place] Address Unknown Phone Unavailable Care Team Providers Care Photographer Aerial Name Role Phone FRANCISCO GUZMAN Unavailable Unavailable Problems This patient has no known problems. Allergies, Adverse Reactions, Alerts This patient has no known allergies or adverse reactions. Medications This patient has no known medications. Results Test Description Test Time Test Comments Text Results Atomic Results Result Comments TISSUE EXAM 2016-12-05 11:57:00 Surgical Pathology Report Case: [id number] Aut horizing Provider: Manuela Guzman MD Ordering Provider: Manuela Guzman MD Ordering Location: [facility] Collected: 12/01/2016 1749 Pathologist: Erick Miranda MD Received: 12/04/2016 0821 Specimens: A) - Polyp, Colon - Transverse, x1 B) - Polyp, Colon - Right/Ascending, x3 A. COLON, TRANSVERSE, POLYPECTOMY: - TUBULAR ADENOMA - NEGATIVE FOR HIGH-GRADE DYSPLASIAB. COLON, RIGHT/ASCENDING, POLYPECTOMY: - FRAGMENTS OF SESSILE SERRATED ADENOMA(SEE COMMENT) - NEGATIVE FOR HIGH-GRADE DYSPLASIA Signing Pathologist Direct Phone Line: [phone]. The largest polyp that is bisected shows cauterized margins which are free of dysplasia. The margins on the remaining smaller fragments are difficult to eval uate due to fragmentation and cauterization artifact.A. 12473H. 25573Vkdakza adenoma of colonA. Transverse colon polyp B. Right/ascending colon polypSpecimen A: Received in formalin labeled "polyp colon transverse" is a single fragment measuring 0.5 cm in greatest dimension. The specimen is entirely submitted in A1.Specimen B: Received in formalin labeled "polyp, colon right/ascending" are five irregular, pink-erickson, polypoid fragments of soft tissue measuring 1.5 x 1.2 x 0.3 cm in aggregate. The largest fragment is bisected, and the specimen is entirely submitted in cassette B1. DB/ewPerformed BASIC METABOLIC PANEL 2016-12-01 15:02:00 SODIUM (BEAKER) (test yvpa=445) 137 meq/L 136-145 POTASSIUM (BEAKER) (test lztl=623) 5.9 meq/L 3.5-5.1 CHLORIDE (BEAKER) (test mvpe=965) 114 meq/L 98-107 CO2 (BEAKER) (test mzzj=767) 11 meq/L 22-29 BLOOD UREA NITROGEN (BEAKER) (test ibno=481) 58 mg/dL 7-21 CREATININE (BEAKER) (test zhpf=449) 3.09 mg/dL 0.57-1.25 GLUCOSE RANDOM (BEAKER) (test spsf=582) 71 mg/dL 70-105 CALCIUM (BEAKER) (test uxor=160) 8.8 mg/dL 8.4-10.2 EGFR (BEAKER) (test rxwx=2342) 15 mL/min/1.73 sq m ESTIMATED GFR IS NOT ACCURATE CREATININE CLEARANCE IN PREDICTING GLOMERULAR FILTRATION RATE. ESTIMATED GFR IS NOT APPLICABLE FOR DIALYSIS PATIENTS. [id number] 11:35:00* Test Item Value Reference Range Comments POC-HEMATOCRIT (BEAKER) (test prks=7606) 38 % 36-45 TESTED AT [place] [address] [id number] 11:35:00* Test Item Value Reference Range Comments POC-HEMOGLOBIN (BEAKER) (test thsu=1322) 12.9 g/dL 12.0-15.0 TESTED AT [place] [address] [id number] 11:34:00* Test Item Value Reference Range Comments POC-SODIUM (BEAKER) (test azen=6390) 138 meq/L 135-148 TESTED AT [place] [address] [id number] 11:34:00* Test Item Value Reference Range Comments POC-POTASSIUM (BEAKER) (test yduq=4952) 6.0 meq/L 3.6-5.5 [address]ED AT [address] [address] [id number] 11:34:00* Test Item Value Reference Range Comments POC-BUN (BEAKER) (test dlmq=9061) 57 mg/dL 7-21 TESTED AT [address] [address] [id number] 11:34:00* Test Item Value Reference Range Comments POC-CHLORIDE (BEAKER) (test dndj=0269) 122 meq/L 98-107 TESTED AT [place] [id number] 11:34:00* Test Item Value Reference Range Comments POC-GLUCOSE (BEAKER) (test jxyc=9418) 61 mg/dL 70-110 TESTED AT [place] [address] [id number] 11:06:00* Test Item Value Reference Range Comments POC-SODIUM (BEAKER) (test yihf=5180) 139 meq/L 135-148 TESTED AT [place] [address] [id number] 11:06:00* Test Item Value Reference Range Comments POC-POTASSIUM (BEAKER) (test ssnb=1557) 6.3 meq/L 3.6-5.5 TESTED AT [place] [id number] 11:06:00* Test Item Value Reference Range Comments POC-BUN (BEAKER) (test akwy=4040) 63 mg/dL 7-21 TESTED AT [place] [address] [id number] 11:06:00* Test Item Value Reference Range Comments POC-CHLORIDE (BEAKER) (test sdiy=0695) 120 meq/L 98-107 TESTED AT [place] [address] [id number] 11:06:00* Test Item Value Reference Range Comments POC-GLUCOSE (BEAKER) (test gpjh=9534) 64 mg/dL 70-110 TESTED AT [address] [address] [id number] 11:06:00* Test Item Value Reference Range Comments POC-HEMATOCRIT (BEAKER) (test lvps=3044) 35 % 36-45 TESTED AT [address] [address] [id number] 11:06:00* Test Item Value Reference Range Comments POC-HEMOGLOBIN (BEAKER) (test lcrt=2302) 11.9 g/dL 12.0-15.0 TESTED AT [address] [address]
--- NOTE | 2018-10-11 11:15 | NUR ---
PT TO XRAY
--- NOTE | 2018-10-11 12:00 | Diagnostic Imaging Report ---
Exam: Left knee 3 views History: Pain, injury 3 weeks ago Comparison: None. Findings: No acute, displaced fracture or dislocation. Diffuse osteopenia. Mild patellofemoral joint space narrowing and osteophytosis. Medial and lateral compartments are well-maintained. No significant joint effusion. Atherosclerotic calcifications of the popliteal artery. Otherwise unremarkable soft tissues. Impression: No acute osseous abnormalities. Signed by: Dr. Ezequiel Wright M.D. on 10/11/2018 11:57 AM
[2018-10-11 12:14] VITALS: BP 130/52
--- NOTE | 2018-10-11 12:20 | NUR ---
KNEE IMMMOBILIZER APPLIED TO LEFT LEG
== END 2018-10-11 12:35 | disposition home or self-care (01) ==
LOC: ER 10:47
DX: M25.562 Pain in left knee (principal); S83.412A Sprain of medial collateral ligament of left knee, initial encounter; W18.30XA Fall on same level, unspecified, initial encounter; I12.0 Hypertensive chronic kidney disease with stage 5 chronic kidney disease or end stage renal disease; N18.6 End stage renal disease; Z76.82 Awaiting organ transplant status; Z98.84 Bariatric surgery status; Z85.53 Personal history of malignant neoplasm of renal pelvis
CPT/HCPCS: 99283